=== PATIENT | female | born 1970 | race Two or more races ===

== ENCOUNTER → 2024-06-05 | Outpatient (CLI) | payer BC, SELFPAY ==
--- NOTE | 2024-06-05 17:02 | XR_ITS ---
Examination: Fingers, right hand first digit 3 views Technique: AP, oblique, lateral views right hand first digit. Exam date and time: June 05, 2023 1736 hrs. Indications: Right thumb swelling beginning 9 days ago Findings: No fracture. No cortical bone destruction No foreign body Impression: No cortical bone destruction
--- NOTE | 2024-06-05 17:02 | XR_ITS ---
Examination: Hand, right 3 views Technique: Hand AP, oblique, lateral 3 views Date and time of exam: June 05, 2024 at 1736 hrs. Indications: Right thumb swelling and pain beginning 9 days ago. Findings: No fracture. No cortical bone destruction No opaque foreign body Impression: No fracture or cortical bone obstruction
== END | disposition home or self-care (01) ==
PROVIDERS: PCP Physician Assistant; Referring Provider Physician Assistant; Visit Provider Physician Assistant
DX: S60.011A Contusion of right thumb without damage to nail, initial encounter (principal); S69.91XA Unspecified injury of right wrist, hand and finger(s), initial encounter; X58.XXXA Exposure to other specified factors, initial encounter
CPT/HCPCS: 73130; 73140

== ENCOUNTER 2024-06-07 13:15 | Emergency (ER) | payer BC, SELFPAY ==
[2024-06-07 13:24] VITALS: BP 164/92; PULSE 85; RESP 18; TEMP 36.9; O2SAT 97; BMI 55.7
--- NOTE | 2024-06-07 13:31 | PD.EDHAND ---
Upper Extremity Injury RME/HPI General Chief Complaint: Hand/Wrist Problems Stated Complaint: Right hand redness, thumb throbbing Source: patient Arrival date/time: 06/07/24 13:15 53-year-old female with no known medical history presents to the emergency room with a chief complaint of tenderness, erythema and throbbing to the right thumb x 3 days Mode of arrival: ambulatory Limitations: no limitations Related Data Previous Rx's ?Medication ?Instructions ?Recorded promethazine-DM 6.25 mg-15 mg/5 mL 5 ml PO Q6H PRN cough #240 mL 03/25/22 oral syrup sulfamethoxazole 800 1 tab PO BID #14 tabs 06/07/24 mg-trimethoprim 160 mg tablet (Bactrim DS) Allergies Allergy/AdvReac Type Severity Reaction Status Date / Time phenobarbital Allergy Severe Anaphylaxis Verified 06/07/24 13:20 Review of Systems Review of Systems Systems Reviewed: All systems reviewed, normal except as documented Constitutional Constitutional: Reports system reviewed and no additional complaints, except as documented, Denies fatigue, Denies fever(s), Denies headache(s) and Denies weakness Eyes Eyes: Reports system reviewed and no additional complaints, except as documented, Denies blurry vision and Denies change in vision ENT Ears, Nose, Mouth, and Throat: Reports system reviewed and no additional complaints, except as documented, Denies otalgia, Denies headache(s), Denies nasal congestion, Denies throat swelling and Denies vertigo Cardiovascular Cardiovascular: Reports system reviewed and no additional complaints, except as documented, Denies chest pain, Denies dyspnea and Denies dyspnea on exertion Respiratory Respiratory: Reports system reviewed and no additional complaints, except as documented, Denies chest congestion, Denies cough, Denies dyspnea, Denies dyspnea on exertion and Denies wheezing Gastrointestinal Gastrointestinal: Reports system reviewed and no additional complaints, except as documented, Denies abdominal pain, Denies cramping, Denies nausea and Denies vomiting Genitourinary Genitourinary: Reports system reviewed and no additional complaints, except as documented Musculoskeletal Musculoskeletal: Reports system reviewed and no additional complaints, except as documented and Denies back pain Integumentary/Breasts Skin/Breast: Reports system reviewed and no additional complaints, except as documented and Denies wounds Neurologic Neurologic: Reports system reviewed and no additional complaints, except as documented, Denies confusion, Denies headache(s), Denies lack of coordination, Denies vertigo and Denies weakness Psychiatric Psychiatric: Reports system reviewed and no additional complaints, except as documented, Denies anxiety, Denies confusion, Denies depression, Denies paranoia, Denies suicidal ideation and Denies tactile hallucinations Endocrine Endocrine: Reports system reviewed and no additional complaints, except as documented and Denies fatigue Hematologic/Lymphatic Hematologic/Lymphatic: Reports system reviewed and no additional complaints, except as documented and Denies lymphadenopathy Allergic/Immunologic Allergic/Immunologic: Reports system reviewed and no additional complaints, except as documented, Denies throat swelling, Denies urticaria and Denies wheezing ED Exam General Limitations: Present no limitations General appearance: Present alert and in no apparent distress Head Head exam: Present atraumatic Eye Eye exam: Present normal appearance, PERRL and EOMI ENT ENT exam: Present normal exam, normal oropharynx and mucous membranes moist Neck Neck exam: Present normal inspection, full ROM and trachea midline Chest Chest inspection: Present normal inspection and symmetric chest wall rise Respiratory Respiratory exam: Present normal lung sounds bilaterally Cardiovascular Cardiovascular exam: Present regular rate, normal rhythm and normal heart sounds Abdominal Exam Abdominal exam: Present soft and normal bowel sounds Extremities Exam Extremities exam: Present normal inspection and full ROM Expanded Upper Extremity Exam Shoulder exam: Present normal inspection Arm exam: Present normal inspection Elbow exam: Present normal inspection Forearm/Wrist exam: Present normal inspection Hand exam: Present tenderness and swelling Hand L/R back image:  1. Erythema, warm to the touch, cellulitis Back Exam Back exam: Present normal inspection and full ROM Neurological Exam Neurological exam: Present alert, oriented X3 and CN II-XII intact Psychiatric Psychiatric exam: Present normal affect and normal mood Skin Skin exam: Present warm, dry, intact and normal color Course Quality Measures none Vital Signs Vital signs: Vital Signs Temperature 98.4 F 06/07/24 13:24 Pulse Rate 85 06/07/24 13:24 Respiratory Rate 18 06/07/24 13:24 Blood Pressure 164/92 H 06/07/24 13:24 Pulse Oximetry (%) 97 06/07/24 13:24 Oxygen Delivery Method Room Air 06/07/24 13:24 Extremity Injury MDM Narrative MDM Narrative:: 53-year-old female with no known medical history presents to the emergency room with a chief complaint of tenderness, erythema and throbbing to the right thumb x 3 days Patient is hemodynamically stable and in no apparent distress. Patient is afebrile she is not tachycardic and not tachypneic Physical examination shows tenderness erythema to the right thumb. The findings are consistent with paronychia. Antibiotics are sent to the patient's pharmacy patient was educated to pick them up and take them as indicated. Patient was educated to follow-up in 48 to 72 hours with her primary care provider or return to the emergency room for reevaluation of her wound as this type of infection will usually be fixed with an incision and drainage. At this time the wound does not ready to be drained. For any evidence of worsening signs or symptoms return to the emergency room immediately Patient data External records reviewed:: [facility] previous records Clinical information provided by:: patient Social determinants that could affect healthcare access:: none Patient has the following chronic illnesses:: No chronic illness How is presenting disease/condition affected by chronic disease/condition?: no chronic disease Evaluation data The following diagnostics were reviewed and interpreted by me:: lab results and radiology exam(s) Lab and/or radiology exams considered but not ordered:: Labs and radiology exams considered and ordered Interpretation Summary: N/A Medications / Prescriptions Medications or Prescriptions considered but not ordered:: Rx given Medication administrations:: Rx given Consultations Consultation(s) initiated? (list below): No Diagnosis Upper Extremity Injury Differential Diagnosis: other (Paronychia/finger fracture/cellulitis) Most likely diagnosis given after review of the tests above:: Paronychia Admission Indicated Admission indicated?: not indicated Admission Request Was there a request for admission?: No Disposition Plan Disposition Plan: Discharge Discharge Attestation Discharge Attestation: The patient and all family members were given an opportunity to ask questions and understood the discharge instructions. Discharge instructions specifically effects, indications for sooner follow up or return to the emergency department, and the expected course of current diagnosis. Patient condition: Stable Discharge Plan Plan Patient Disposition: HOME (Self Care) Disposition Comment: Stable Prescriptions/Referrals Prescriptions/Med Rec: New sulfamethoxazole-trimethoprim [Bactrim DS] 800-160 mg tablet 1 tab PO BID Qty: 14 0RF No Action promethazine-DM 6.25-15 mg/5 mL syrup 5 ml PO Q6H PRN (Reason: cough) Qty: 240 0RF Problem List Clinical Impression: Paronychia Patient/Caregiver Discharge Instructions Additional Instructions: Please follow-up with your primary care provider in the next 24 to 48 hours. At this time your infection your nailbed is not ready for an incision and drainage. 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 If your infection begins to get worse please return to the emergency room or follow-up with your primary care provider Print Language: Citizen Of [place] Stand Alone Forms: [employer] Award Info., Patient Portal Info Letter PA/[employer] Supervising Physician PA/JEANETTE Supervising Physician: Dr. Loja
== END 2024-06-07 13:46 | disposition home or self-care (01) ==
LOC: SERX 13:48
PROVIDERS: Emergency Provider Emergency Medicine; PCP Nurse Practitioner Family
DX: L03.011 Cellulitis of right finger (principal)
CPT/HCPCS: 99281

== ENCOUNTER → 2024-07-15 | Outpatient (CLI) | payer BC, SELFPAY ==
--- NOTE | 2024-07-15 08:30 | XR_ITS ---
Examination: Screening digital mammography, bilateral Computer aided detection 3-D breast Tomosynthesis, bilateral Date and time of exam: 07/15/2024, 8:38 AM Comparisons: 12/16/2022 Indications: Screening Technique: Nonmagnified MLO, CC views of the breasts to been obtained, reconstructed from 3-D Tomosynthesis images. R2 computer aided detection program utilized for evaluation of suspicious masses and/or abnormal calcifications. 3-D Tomosynthesis images obtained. Technologist: Findings: There are scattered areas of fibroglandular density. No evidence of abnormal masses or suspicious calcifications. Impression: BI-RADS category 1: Negative findings (within normal) Recommend 1 year follow-up mammogram
== END | disposition home or self-care (01) ==
LOC: CDIM 08:30
PROVIDERS: Referring Provider Physician Assistant; Visit Provider Physician Assistant
DX: Z12.31 Encounter for screening mammogram for malignant neoplasm of breast (principal); R92.313 Mammographic fatty tissue density, bilateral breasts
CPT/HCPCS: 77063; 77067